=== PATIENT | male | born 1975 | race Caucasian/White ===

== ENCOUNTER 2018-11-07 12:45 | Emergency (ER) | payer OTHER ==
[2018-11-07 13:08] VITALS: BP 146/97
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
== END 2018-11-07 13:41 | disposition home or self-care (01) ==
LOC: UCEAST 12:45
DX: J40 Bronchitis, not specified as acute or chronic (principal); F17.200 Nicotine dependence, unspecified, uncomplicated; Z88.2 Allergy status to sulfonamides; Z79.82 Long term (current) use of aspirin; Z91.09 Other allergy status, other than to drugs and biological substances
CPT/HCPCS: 99211; G0463

== ENCOUNTER 2018-11-09 10:58 | Emergency (ER) | payer OTHER ==
[2018-11-09 11:37] VITALS: BP 143/97
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
[2018-11-09] MEDS ORDERED: predniSONE TAB* 20 MG PO ONE (14:20)
[2018-11-09] MEDS ORDERED: Albuterol/Ipratropium NEB.SOL* Albuterol 2.5 MG/Ipratropium 0.5 MG 3 ML INH ONE (14:20)
== END 2018-11-09 15:15 | disposition home or self-care (01) ==
LOC: UCEAST 10:58
DX: J20.9 Acute bronchitis, unspecified (principal); R06.2 Wheezing; F17.210 Nicotine dependence, cigarettes, uncomplicated; Z88.2 Allergy status to sulfonamides; Z91.09 Other allergy status, other than to drugs and biological substances
CPT/HCPCS: 99212; A9270-GY; G0463; J7512

== ENCOUNTER 2018-11-29 12:49 | Emergency (ER) | payer OTHER ==
[2018-11-29 13:23] VITALS: BP 145/86
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
== END 2018-11-29 14:19 | disposition home or self-care (01) ==
LOC: UCEAST 12:49
DX: N39.0 Urinary tract infection, site not specified (principal); R03.0 Elevated blood-pressure reading, without diagnosis of hypertension; Z88.2 Allergy status to sulfonamides
CPT/HCPCS: 81003; 87077; 87086; 87186; 99212; G0463

== ENCOUNTER 2019-06-17 13:27 | Emergency (ER) | payer MEDICARE, OTHER ==
[2019-06-17 13:41] VITALS: BP 137/98
--- NOTE | 2019-06-17 13:46 | UC ---
Skin Complaint HPI - HPI Summary HPI Summary: 43 y/o male presents to the urgent care c/o tick bite for the past 2 days on his Rt groin. Pt reports he feels like w/ body aches and fatigue for the past week. Then he noticed the tick bite this morning and removed the tick which was not engorged. No Hx of tick bites in the past. He has a dog and he thinks he got it from him. 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 Pt denies fever, neck pain, TERRY, numbness or tingling sensation over the extremities, SOB, joint pain, chest pain, abdominal pain, N/V/D. - History of Current Complaint Chief Complaint: UCSkin Time Seen by Provider: 06/17/19 13:44 Stated Complaint: TICK BITE Hx Obtained From: Patient Onset/Duration: Gradual Onset, Lasting Days - 2 days tick bite on the Rt side of groin, Still Present Skin Exposure Onset/Duration: Days Ago - 2 days Timing: Constant Onset Severity: Mild Current Severity: Mild Pain Intensity: 0 Pain Scale Used: 0-10 Numeric Location: Discrete - RT side of groin tick bite Aggravating Factor(s): Touch Alleviating Factor(s): Nothing Associated Signs & Symptoms: Positive: Rash - tick bite on the RT side of groin. Negative: Nausea, Difficulty Breathing, Fever, Chills, Cough, Wheezing, Chest Pain, Hoarseness, Drainage, Tenderness, Joint Swelling Related History: Possible Reaction to: Insect - tick bite - Allergy/Home Medications Allergies/Adverse Reactions: Allergies Allergy/AdvReac Type Severity Reaction Status Date / Time cat dander Allergy Congestion Verified 06/17/19 13:42 dog dander Allergy Congestion Verified 06/17/19 13:42 Sulfa (Sulfonamide Allergy Hives/Diff. Verified 06/17/19 13:42 Antibiotics) Breathing/I tching PMH/Surg Hx/FS Hx/Imm Hx Previously Healthy: Yes Other Neurological History: C5-C6 cord injury, neuropahry - Surgical History Surgical History: Yes Surgery Procedure, Year, and Place: C5/C6 cervical fusion 2009, Adnoids removed. ear tubes at age 9. IVC FILTER - Family History Known Family History: Positive: None - Pt denies FMHX - Social History Occupation: Disabled Lives: With Family Alcohol Use: Occasionally Substance Use Type: None Smoking Status (MU): Former Smoker Have You Smoked in the Last Year: Yes Household Exposure Type: Cigars Review of Systems All Other Systems Reviewed And Are Negative: Yes Constitutional: Positive: Fatigue, Other - bpdy aches Skin: Positive: Rash - tick bite in the Rt side of groin 2 days ago Eyes: Positive: Negative ENT: Positive: Negative Respiratory: Positive: Negative Cardiovascular: Positive: Negative Gastrointestinal: Positive: Negative Genitourinary: Positive: Negative Motor: Positive: Negative Neurovascular: Positive: Negative Musculoskeletal: Positive: Negative Neurological: Positive: Negative Psychological: Positive: Negative Is Patient Immunocompromised?: No Physical Exam - Summary Physical Exam Summary: Vital Signs Reviewed: Yes General: well developed, well nourished male sitting in the examining table w/o any apparent distress. Eyes: Positive: Conjunctiva Clear - PERRLA, EOMI ENT: Positive: Normal ENT inspection, Hearing grossly normal, Pharynx normal, TMs normal Neck: Positive: Supple, Nontender, No Lymphadenopathy Respiratory: Positive: Chest nontender, Lungs clear, Normal breath sounds Cardiovascular: Positive: RRR, No Murmur, Pulses Normal Abdomen Description: Positive: Nontender, No Organomegaly, Soft. Negative: CVA Tenderness (R), CVA Tenderness (L) Bowel Sounds: Positive: Present Musculoskeletal: Positive: Strength Intact, ROM Intact, No Edema Neurological Exam: Normal Psychological Exam: Normal Skin: Positive: rashes - RT side of groin with tick bite with surrounding erythema, non tender to palpation. tick no longer present, no swelling or drainage observed. Triage Information Reviewed: Yes Vital Signs: Initial Vital Signs Temp 98.6 F 06/17/19 13:37 Pulse 80 06/17/19 13:37 Resp 12 06/17/19 13:37 BP 137/98 06/17/19 13:37 Pulse Ox 98 06/17/19 13:37 Course/Dx - Course Course Of Treatment: 43 y/o male presents to the urgent care c/o tick bite for the past 2 days on his Rt groin. Pt reports he feels like w/ body aches and fatigue for the past week. Then he noticed the tick bite this morning and removed the tick which was not engorged. No Hx of tick bites in the past. He has a dog and he thinks he got it from him. 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 Pt denies fever, neck pain, TERRY, numbness or tingling sensation over the extremities, SOB, joint pain, chest pain, abdominal pain, N/V/D. Hx obtained. Pt is hemodynamically stable. Vitlas: WNL. RT side of groin with tick bite with surrounding erythema, non tender to palpation. tick no longer present, no swelling or drainage observed. Area cleaned w/ alcohol swab. Antibiotic prophylaxis with Doxycycline given to the patient to prevent lyme Disease.. Pt tolerated well medication. Pt educated on Lyme disease. Pt advised to observe the area for the development or Erythema Migrans for up to 30 days following exposure. Advised if he develops fever or erythema Migrans to return to the clinic or PCP for further treatment. Explained Lyme Serology can be done after 2 weeks pf tick exposure. Given referral w/ Dr Hernandez if needed. Pt understood and agreed with plan of care. - Differential Diagnoses - Skin Complaint Differential Diagnoses: Cellulitis, Contact Dermatitis, MRSA, Tick Born Illness , Urticaria, Other - insect bite, bee sting - Diagnoses Provider Diagnosis: Tick bite of groin Discharge ED - Sign-Out/Discharge Documenting (check all that apply): Patient Departure - D/C home All imaging exams completed and their final reports reviewed: No Studies - Discharge Plan Condition: Stable Disposition: HOME Patient Education Materials: Tick Bite (ED) Referrals: Yasir Kinsey MD [Primary Care Provider] - 2 Weeks Karma AQUINO,Gareth Galvan [Medical Doctor] - If Needed Additional Instructions: 1- Please observe the area for the development or Erythema Migrans for upto 30 days following exposure. Components of the tick saliva can cause transient erythema that should not be confused with Erythema Migrans. If you develop the bull's eye rash, fever, joint pains please f/u with your PCP or Dr Hernandez for further management. Apply Bacitracin oint or triple antibiotic around tick bite as directed to prevent infection. 2-Antibiotic prophylaxis with Doxycycline was given to you today to prevent lyme Disease. Lyme serology can be drawn in 2 weeks with your PCP to r/o Lyme disease since there is probability of negative results at early exposure. - Billing Disposition and Condition Condition: STABLE Disposition: Home
[2019-06-17] MEDS ORDERED: DOXYcycline CAP(*) 100 MG PO ONE (13:59)
== END 2019-06-17 14:15 | disposition home or self-care (01) ==
LOC: UCEAST 13:27
DX: S30.861A Insect bite (nonvenomous) of abdominal wall, initial encounter (principal); S14.105A Unspecified injury at C5 level of cervical spinal cord, initial encounter; W57.XXXA Bitten or stung by nonvenomous insect and other nonvenomous arthropods, initial encounter; Z88.2 Allergy status to sulfonamides; Z91.09 Other allergy status, other than to drugs and biological substances; Z87.891 Personal history of nicotine dependence
CPT/HCPCS: 99212; A9270-GY; G0463